=== PATIENT | male | born 1990 | race Caucasian/White ===

== ENCOUNTER 2018-03-25 21:07 | Emergency (ER) | payer SELFPAY ==
[~2018-03-25] VITALS: Ht 175.3 cm; Wt 83.9 kg
--- NOTE | 2018-03-26 00:26 | RAD ---
INDICATION: Testicular pain. COMPARISON: None. TECHNIQUE: Grayscale, color and spectral doppler ultrasound images obtained of the scrotum. FINDINGS: Right Testicle: 40 x 27 x 14 mm. Vascular flow is identified. Left Testicle: 42 x 24 x 18 mm. Vascular flow is identified. There are some prominent vessels on the left. These measure up to about 3 mm IMPRESSION: 1. Vascular flow is identified to the bilateral testicles. 2. There are some prominent vessels seen within the left groin/scrotal region. Causes such as borderline varicocele can have this appearance. Electronically signed by: Luiz Cox MD (03/26/2018 12:22 AM) [id number]
--- NOTE | 2018-03-26 00:57 | RAD ---
INDICATION: LT GROIN TESTICLE PAIN COMPARISON: None. FINDINGS: Focused ultrasound images are obtained through the left groin. There are some scattered lymph nodes seen within the region. There are no definite loops of bowel within the left groin to suggest a bowel containing left inguinal hernia. IMPRESSION: 1. There are some scattered lymph nodes in the left groin without any loops of bowel in the region to suggest a bowel containing left inguinal hernia. Electronically signed by: Luiz Cox MD (03/26/2018 12:53 AM) [id number]
[2018-03-26 01:09] LABS: BILIRUBIN,URINE SMALL (NEG); CLARITY,URINE CLEAR; COLOR,URINE AMBER; NITRITE,URINE NEGATIVE (NEG); PROTEIN,URINE 30 mg/dL (NEG-TRACE)
[2018-03-26 01:14] LABS: BACTERIA,URINE 0 /HPF (0-FEW); RBC,URINE OCC /HPF (0-2); SQUAMOUS EPITHELIAL CELL,UR OCC /LPF; WBC,URINE OCC /HPF (0-4)
--- NOTE | 2018-03-26 01:23 | RAD ---
INDICATION: LT. FLANK PAIN COMPARISON: Ultrasound earlier same day TECHNIQUE: Axial CT images obtained through the abdomen and pelvis without contrast. One or more of the following individualized dose reduction techniques were utilized for this examination: 1. Automated exposure control; 2. Adjustment of the mA and/or kV according to patient size; 3. Use of iterative reconstruction technique. FINDINGS: Abdominal aorta not aneurysmal. No intrahepatic bile duct dilation. No peripancreatic fluid collection. Spleen unremarkable. No left-sided hydronephrosis. No right-sided hydronephrosis. Urinary bladder partially distended. There is patient motion through a portion of the exam including at the suspected region of the appendix. The suspected appendix likely abuts the adjacent cecum but difficult evaluation given motion through the region. No dilated loops of bowel to suggest obstruction. Early degenerative changes the spine with suspected disc protrusions and osteophyte formation including at L4-5 and L5-S1 with neural foraminal stenosis. IMPRESSION: 1. No hydronephrosis or radiopaque obstructive ureter stone. 2. Minimal prominence of the fat in the left inguinal canal compared to the right without a loop of bowel extending into the inguinal canal. Electronically signed by: Luiz Cox MD (03/26/2018 1:19 AM) [id number]
--- NOTE | 2018-03-26 01:54 | PHYS DOC ---
Past Medical History Past Medical History: No Pertinent History Past Surgical History: No Surgical History Alcohol Use: Rarely Drug Use: None Adult General Chief Complaint Chief Complaint: GROIN PAIN HPI HPI Patient is a 28 year old male who presents with left groin swelling and some difficulty with urination. Symptoms have been present over the last week. He has been able to void but has some pain associated with voiding. He does not have any urethral discharge. Today, he noticed his left testicle seemed to more swollen compared to the right. It was not painful. No fever or chills. He is sexually active with one partner. No prior hx of similar symptoms. Review of Systems Review of Systems Constitutional: Denies fever or chills HENT: Denies Respiratory: Denies Cardiovascular: No additional information GI: Denies abdominal pain, nausea, vomiting : Denies dysuria Musculoskeletal: Denies back pain Integument: Denies rash or skin lesions Neurologic: Denies headache All other systems were reviewed and found to be within normal limits, except as documented in this note. Allergies Allergies Allergies Coded Allergies Type Severity Reaction Last Updated Verified Penicillins Allergy Unknown "I DONT KNOW" 03/25/18 Yes Physical Exam Physical Exam Constitutional: Well developed, well nourished, no acute distress HENT: Normocephalic, atraumatic, bilateral external ears normal, oropharynx moist Eyes: PERRLA, EOMI, conjunctiva normal Neck: Normal range of motion, no tenderness Cardiovascular:Heart rate regular rhythm, no murmur Lungs & Thorax: Bilateral breath sounds clear Abdomen: Bowel sounds normal, soft, no tenderness Skin: Warm, dry, no erythema, no rash Back: No tenderness, no CVA tenderness Neurologic: Alert and oriented X 3 Psychologic: Affect normal Abdominal exam is benign. There is an area that appears to be swollen the left inguinal region. The left scrotal sac seems to be mildly enlarged compared to the right but there is no pain or tenderness with manipulation. The patient has positive cremasteric reflexes bilaterally. There is no urethral discharge. Palpable hernia or mass. Current Patient Data Vital Signs Vital Signs Date Time Temp Pulse Resp B/P (MAP) Pulse Ox O2 Delivery O2 Flow Rate FiO2 03/26/18 02:15 100 16 124/69 (87) 99 Room Air 03/25/18 21:30 97.7 97.7 Lab Values Laboratory Tests Test 03/26/18 01:00 Urine Collection Type Unknown Urine Color Jana Urine Clarity Clear Urine pH 6.0 Urine Specific [place] >=1.030 Urine Protein 30 mg/dL (NEG-TRACE) Urine Glucose (UA) Negative mg/dL (NEG) Urine Ketones (Stick) Trace mg/dL (NEG) Urine Blood Negative (NEG) Urine Nitrite Negative (NEG) Urine Bilirubin Small (NEG) Urine Urobilinogen Dipstick 1.0 mg/dL (0.2 mg/dL) Urine Leukocyte Esterase Negative (NEG) Urine RBC Occ /HPF (0-2) Urine WBC Occ /HPF (0-4) Urine Squamous Epithelial Cells Occ /LPF Urine Bacteria 0 /HPF (0-FEW) Urine Mucus Marked /LPF EKG EKG [] Radiology/Procedures Radiology/Procedures CT abd/pelvis: FINDINGS: Abdominal aorta not aneurysmal. No intrahepatic bile duct dilation. No peripancreatic fluid collection. Spleen unremarkable. No left-sided hydronephrosis. No right-sided hydronephrosis. Urinary bladder partially distended. There is patient motion through a portion of the exam including at the suspected region of the appendix. The suspected appendix likely abuts the adjacent cecum but difficult evaluation given motion through the region. No dilated loops of bowel to suggest obstruction. Early degenerative changes the spine with suspected disc protrusions and osteophyte formation including at L4-5 and L5-S1 with neural foraminal stenosis. IMPRESSION: 1. No hydronephrosis or radiopaque obstructive ureter stone. 2. Minimal prominence of the fat in the left inguinal canal compared to the right without a loop of bowel extending into the inguinal canal. Scrotal US: FINDINGS: Right Testicle: 40 x 27 x 14 mm. Vascular flow is identified. Left Testicle: 42 x 24 x 18 mm. Vascular flow is identified. There are some prominent vessels on the left. These measure up to about 3 mm IMPRESSION: 1. Vascular flow is identified to the bilateral testicles. 2. There are some prominent vessels seen within the left groin/scrotal region. Causes such as borderline varicocele can have this appearance. Abd US: FINDINGS: Focused ultrasound images are obtained through the left groin. There are some scattered lymph nodes seen within the region. There are no definite loops of bowel within the left groin to suggest a bowel containing left inguinal hernia. IMPRESSION: 1. There are some scattered lymph nodes in the left groin without any loops of bowel in the region to suggest a bowel containing left inguinal hernia. Course & Med Decision Making Course & Med Decision Making Pertinent Labs and Imaging studies reviewed. (See chart for details) Patient was evaluated in the emergency department with concerns for a left inguinal hernia. Ultrasound and CT scan did not reveal hernia but there was some findings suspicious for some inflammation. Suspect the patient is possibly having intermittent herniation in that area but just not seen this evening. Urinalysis was negative. Patient was discharged to home. He was given precautions including no heavy lifting over 10 pounds. He was encouraged follow- up with his primary care doctor. Dragon Disclaimer Dragon Disclaimer This electronic medical record was generated, in whole or in part, using a voice recognition dictation system. Departure Departure Referrals: NO PCP (PCP) GILL WONG DO Mar 26, 2018 01:54
[2018-03-26 02:15] VITALS: BP 124/69
== END 2018-03-26 02:38 | disposition home or self-care (01) ==
LOC: ER 21:07
DX: R19.00 Intra-abdominal and pelvic swelling, mass and lump, unspecified site (principal)
CPT/HCPCS: 74176; 76857; 76870; 81001; 99285

== ENCOUNTER 2018-05-31 10:51 | Emergency (ER) | payer SELFPAY ==
[~2018-05-31] VITALS: Ht 175.3 cm; Wt 86.2 kg
[2018-05-31 10:51] VITALS: BP 126/75
--- NOTE | 2018-05-31 11:31 | PHYS DOC ---
Past Medical History Past Medical History: Migraines Past Surgical History: No Surgical History Alcohol Use: Sober Drug Use: None Adult General Chief Complaint Chief Complaint: OTHER COMPLAINTS [facility] HPI Patient is a 28 year old male who presents with a migraine yesterday and began vomiting at work. He was sent home from work because he is vomiting. Patient states today he is fine and his migraine is gone he has not vomited. Review of Systems Review of Systems Constitutional: Denies fever or chills [] Eyes: Denies change in visual acuity, redness, or eye pain [] HENT: Denies nasal congestion or sore throat [] Respiratory: Denies cough or shortness of breath [] Cardiovascular: No additional information not addressed in HPI [] GI: Denies abdominal pain. nausea and vomiting yesterday, denies bloody stools or diarrhea [] : Denies dysuria or hematuria [] Musculoskeletal: Denies back pain or joint pain [] Integument: Denies rash or skin lesions [] Neurologic: Migraine headache yesterday, focal weakness or sensory changes [] All other systems were reviewed and found to be within normal limits, except as documented in this note. Allergies Allergies Allergies Coded Allergies Type Severity Reaction Last Updated Verified Penicillins Allergy Unknown "I DONT KNOW" 03/25/18 Yes Physical Exam Physical Exam Constitutional: Well developed, well nourished, no acute distress, non-toxic appearance. [] HENT: Normocephalic, atraumatic, bilateral external ears normal, oropharynx moist, no oral exudates, nose normal. [] Eyes: PERRLA, EOMI, conjunctiva normal, no discharge. [] Neck: Normal range of motion, no tenderness, supple, no stridor. [] Cardiovascular:Heart rate regular rhythm, no murmur [] Lungs & Thorax: Bilateral breath sounds clear to auscultation [] Abdomen: Bowel sounds normal, soft, no tenderness, no masses, no pulsatile masses. [] Skin: Warm, dry, no erythema, no rash. [] Back: No tenderness, no CVA tenderness. [] Extremities: No tenderness, no cyanosis, no clubbing, ROM intact, no edema. [] Neurologic: Alert and oriented X 3, normal motor function, normal sensory function, no focal deficits noted. [] Psychologic: Affect normal, judgement normal, mood normal. [] Current Patient Data Vital Signs Vital Signs Date Time Temp Pulse Resp B/P (MAP) Pulse Ox O2 Delivery O2 Flow Rate FiO2 05/31/18 10:51 97.6 76 18 126/75 (92) 100 97.6 EKG EKG [] Radiology/Procedures Radiology/Procedures [] Course & Med Decision Making Course & Med Decision Making Patient is a 28 year old male who presents with a migraine yesterday and began vomiting at work. He was sent home from work because he is vomiting. Patient states today he is fine and his migraine is gone he has not vomited. Alert and oriented. Skin pink warm and dry. His membranes moist. Lungs are clear to auscultation in all lobes. Heart rate regular without murmur. Afebrile. PERRLA. Denies any pain, dizziness, nausea, vomiting, soa, chest pain or recent illness. Patient states he needs a work note stating that he can return to work today. Dragon Disclaimer Dragon Disclaimer This electronic medical record was generated, in whole or in part, using a voice recognition dictation system. Departure Departure Impression: Primary Impression: Encounter for medical screening examination Disposition: HOME, SELF-CARE Condition: STABLE Referrals: NO PCP (PCP) Patient Instructions: Medical Screening Exam Additional Instructions: He may return to work. Follow-up with her primary care if needed. POLINA HARPER APRN May 31, 2018 11:31
== END 2018-05-31 11:55 | disposition home or self-care (01) ==
LOC: ER 10:51
DX: Z00.00 Encounter for general adult medical examination without abnormal findings (principal); R11.11 Vomiting without nausea; G43.909 Migraine, unspecified, not intractable, without status migrainosus; Z88.0 Allergy status to penicillin
CPT/HCPCS: 99281